=== PATIENT | male | born 1955 | race Caucasian/White ===

== ENCOUNTER → 2024-12-14 13:06 | Outpatient (CLI) | payer MEDICARE, BC, SELFPAY ==
--- NOTE | 2024-12-14 13:10 | DI.MRI.S_ITS ---
PROCEDURE: MR LUMBAR SPINE WO CON INDICATIONS: RADICULAPATHY TECHNIQUE: Noncontrast sagittal T1 spin echo and T2 fast echo, sagittal STIR, and T2 fast spin echo through the lumbar spine. In cases with scoliosis, additional coronal T2 fast spin echo may be performed. COMPARISON: None. FINDINGS: Image quality: Excellent. Alignment and Curvature: There is normal bony alignment. Bone Marrow: Marrow is of normal overall signal. No acute vertebral body compression fractures. Spinal Cord: Conus medullaris terminates at the L1 level. Visualized cord demonstrates normal signal and size. Paraspinous Soft Tissues: No paravertebral masses. T12-L1: Normal appearance. L1-L2: Disc desiccation and mild height loss. Facet arthropathy. No central canal or neural foraminal stenosis. L2-L3: Disc desiccation. Facet arthropathy. No central canal or neural foraminal stenosis. L3-L4: Disc desiccation. Facet hypertrophy and thickening of ligamentum flavum. No central canal stenosis. Mild bilateral neural foraminal stenosis. L4-L5: Facet hypertrophy. No central canal. Mild bilateral neural foraminal stenosis. L5-S1: Facet arthropathy. No central canal stenosis. Mild bilateral neural foraminal stenosis. IMPRESSION: 1. Multilevel degenerative changes of the lumbar spine as described above. 2. No significant central canal stenosis. 3. Mild bilateral neural foraminal stenosis at L3-L4, L4-5 and L5-S1. Approved by: Nathan Sánchez M.D. on 12/14/2024 at 15:09
== END ==
LOC: MRI 13:08
PROVIDERS: PCP Family Medicine; Referring Provider Family Medicine; Visit Provider Orthopaedic Surgery
DX: M47.26 Other spondylosis with radiculopathy, lumbar region (principal); M47.27 Other spondylosis with radiculopathy, lumbosacral region; M48.061 Spinal stenosis, lumbar region without neurogenic claudication; M48.07 Spinal stenosis, lumbosacral region
CPT/HCPCS: 72148